=== PATIENT | male | born 1965 | race Caucasian/White ===

== ENCOUNTER 2018-07-07 06:57 | Inpatient (IN) | payer MEDICARE, OTHER ==
[2018-07-07] MEDS ORDERED: PROPOFOL 200 MG/20 ML VIAL IV ONE (08:48)
[2018-07-07] MEDS ORDERED: DEXAMETHASONE SODIUM PHOSPHATE 10 MG/ML VIAL ONE (08:48)
[2018-07-07] MEDS ORDERED: ePHEDrine SULFATE 50 MG/1 ML IVP ONE (08:48)
[2018-07-07] MEDS ORDERED: NORMAL SALINE 1,000 ML IV.SOLN IV ONE (08:48)
[2018-07-07] MEDS ORDERED: LACTATED RINGERS 1,000 ML IV.SOLN IV ONE ×2 (08:48)
[2018-07-07] MEDS ORDERED: SEVOFLURANE 250 ML LIQUID IH ONE (08:48)
[2018-07-07] MEDS ORDERED: HYDROmorphone HCL/PF 1 MG/ML VIAL ONE ×2 (08:48→17:07)
[2018-07-07] MEDS ORDERED: GELATIN SPONGE,ABSORB/PORCINE (SIZE 100) 1 EACH SPONGE TP ONE (08:48)
[2018-07-07] MEDS ORDERED: THROMBIN (BOVINE) 5,000 UNIT VIAL TP ONE (08:48)
[2018-07-07] MEDS ORDERED: ROCURONIUM BROMIDE 10 MG/ML 5ML VIAL ONE (08:48)
[2018-07-07] MEDS ORDERED: ceFAZolin SODIUM 1 GM VIAL ONE (08:48)
[2018-07-07] MEDS ORDERED: PHENYLEPHRINE HCL 10 MG/1 ML ONE (08:48)
[2018-07-07] MEDS ORDERED: LIDOCAINE HCL 2% PF 100MG/5ML VIAL IJ ONE (08:48)
[2018-07-07] MEDS ORDERED: MIDAZOLAM HCL 2 MG/2 ML VIAL ONE (08:48)
[2018-07-07] MEDS ORDERED: HYDROmorphone HCL/PF 2 MG/ML VIAL ONE (08:48)
[2018-07-07] MEDS ORDERED: fentaNYL CITRATE/PF 100 MCG/2 ML INJ. ONE ×2 (08:48→17:06)
[2018-07-07] MEDS ORDERED: BACITRACIN 50,000 UNIT VIAL IR ONE (08:48)
[2018-07-07] MEDS ORDERED: LEVALBUTEROL NEB 1.25 MG/3 ML VIAL.NEB NEB ONE (08:48)
[2018-07-07] MEDS ORDERED: THROMBIN (BOVINE) 20,000 UNIT VIAL TP ONE (08:48)
[2018-07-07] MEDS ORDERED: SUGAMMADEX SODIUM 200 MG/2 ML VIAL IV ONE (08:48)
[2018-07-07 18:24] VITALS: BMI 28.7
--- NOTE | 2018-07-07 18:42 | History and Physical Report ---
History of Present Illnes - History of Present Illness Reason for Visit: back pain; s/p L5-[id number] removed, pedicle crew & interbody cage with tr History of Present Illness: 52yo male patient who has some previous surgery to the lower back in 2017 for chronic back pain. Patient is not sure what exactly was done. post surgery he did well. In March of this year started to have some increase problems with back pain again. Failed PT, steroid shots. No numbness or tingling to the lower extremities. Patient has failed conservative measures and it was felt that he would benefit from removal of previous hardware with placement of cage. Patient underwent L5-S1 hardware removed - (pedicle screws) & interbody cage was placed with transforaminal lumbar interbody fusion at L5-S1. Patient was admitted for further care. - Past Medical History Cardiac: CAD (nt), [place] (1997), Hyperlipidemia Pulmonary: Asthma (stab;e, uses occasion HF treatment along with chrinic meidcations), COPD Hepatobiliary: Hep A/B/C (Hep C has ot been treated) Psych: Anxiety, Other (history of meth abuse) Musculoskeletal: Osteoarthritis (generalized) - Past Surgical History Past Surgical History: Total Hip Replacement (left), Total Knee Replacement (bialteral), Other (Rotator cuff repair- Bilterl, left wrist surgery, L5 S1 fusion, ) - Past Family History Mother Family History: Cancer (lung, throat), CAD (CHF), (68yo) Father Family History: CAD (CHF), (69yo) Sister 1 Family History: Cancer (breast) - Past Social History Smoke: <1 pack per day (3/4 ppd) Alcohol: None Drugs: None Lives: Other (girl friend) Domestic Violence: Negative - Health Maintenance Health Maintenance: Influenza Vaccine, Pneumococcal Vaccine Influenza Vaccine: Current for this Influenza Season Pneumonia Vaccine: Yes Resuscitation Status: Resusciation Status Resuscitation Status Full Code Review of Systems - Review of Systems Constitutional: negative: Fever, Chills, Sweats, Weakness Eyes: negative: pain, vision change ENT: negative: Ear Pain, Ear Discharge, Nose Pain, Nose Discharge, Nose Congestion, Mouth Pain, Mouth Swelling, Throat Pain, Throat Swelling Respiratory: negative: Cough, Dry, Shortness of Breath, Hemoptysis, SOB with Excertion, Pleuritic Pain, Sputum, Wheezing Cardiovascular: negative: Chest Pain, Palpitations, Orthopnea, Paroxysmal Noc. Dyspnea, Light Headedness Gastrointestinal: negative: Nausea, Vomiting, Abdominal Pain, Diarrhea, Constipation, Hematochezia Genitourinary: negative: Dysuria, Frequency, Incontinence, Hematuria Musculoskeletal: Back Pain. negative: Neck Pain, Shoulder Pain, Arm Pain Skin: negative: Rash Neurological: negative: Weakness, Numbness, Incoordination, Change in Speech, Confusion, Seizures - Medications/Allergies Allergies/Adverse Reactions: Allergies Allergy/AdvReac Type Severity Reaction Status Date / Time No Known Allergies Allergy Verified 07/07/18 18:25 Home Medications: Home Medications Budesonide/Formoterol Fumarate [Symbicort 80-4.5 Mcg Inhaler] 2 inh INH BID 07/07/18 Clonazepam 1 tab PO TID PRN 07/07/18 Montelukast Sodium [Singulair] 10 mg PO HS 07/07/18 Oxycodone HCl/Acetaminophen [Oxycodone-Acetaminophen 10-325] 1 tab PO Q4 PRN 07/07/18 Tizanidine HCl 4 mg PO TID PRN 07/07/18 Valacyclovir HCl [Valacyclovir] 1 tab PO DAILY 07/07/18 Exam - Exam Vital Signs: Vital Signs (72 hours) 07/07/18 18:00 Temperature 96.8 F L Pulse Rate [ 79 Right] Respiratory 20 Rate Blood Pressure 125/72 [Right Arm] O2 Sat by Pulse 96 Oximetry General: Alert, Oriented to Person, Oriented to Place, Oriented to Time, Cooperative HEENT: Atraumatic, PERRLA, EOMI, Mouth Mucous membr. moist/Crooks, Nose Mucous membr. moist/Crooks Neck: Normal Range of Motion Carotids: WNL Lungs: Clear to auscultation, Normal air movement, Speaks full Sentences Cardiovascular: Regular rate, Normal S1, Normal S2, No murmurs Abdomen: Normal bowel sounds, Soft, No tenderness, No hepatospenomegaly, No masses Integumentary: Normal, [place], Warm, Dry Extremities: No clubbing, No cyanosis, No edema, Normal pulses, No tenderness/swelling Neurological: Normal gait, Normal speech, Strength Equal Bilat, Normal tone, Sensation intact, Cranial nerves 3-12 NL, Reflexes 2+ Psych/Mental Status: Mental status NL, Mood NL, Appropriate Affect, Intact Judgment - Laboratory Results Laboratory Results: Laboratory Results 07/07/18 08:46 Potassium 4.3 Assessment/Plan - Assessment/Plan (1) Follow-up examination after orthopedic surgery Status: Acute Current Visit: Yes Assessment: Patient has been placed on routine protochol for post-op surgery. Patient encourage with early ambulation. instructive to use incentinve spirometry several times an hour while awake. (2) CAD (coronary artery disease) Status: Chronic Current Visit: Yes Qualifiers: Coronary Disease-Associated Artery/Lesion type: [place] artery [place] vs. transplanted heart: kaw heart Assessment: continue with home meds (3) COPD (chronic obstructive pulmonary disease) Status: Chronic Current Visit: Yes Assessment: Continue with home meds (4) Asthma in adult Status: Chronic Current Visit: Yes Qualifiers: Asthma severity: mild Asthma persistence: intermittent Asthma complication type: uncomplicated Qualified Code(s): J45.20 - Mild intermittent asthma, uncomplicated Assessment: continue with home meds (5) Hepatitis C infection Status: Chronic Current Visit: Yes Assessment: Has not been treated at this time (6) Generalized OA Status: Chronic Current Visit: Yes (7) Tobacco dependence Status: Acute Current Visit: Yes Assessment: nicotine patch, encourage patient to stop smoking VTE Assessment - RISK FACTOR SCORE VTE RISK FACTOR SCORES: ANTICIPATED BED CONFINEMENT OR IMMOBILIZATION > 24 HOURS, MINOR SURGERY/ ANESTHESIA TIME < 1 HOUR - RISK VTE MODERATE RISK: SCORE OF 2 (RISK PROXIMAL DVT 2-4%) PROPHYAXIS NEEDED
[2018-07-07] MEDS ORDERED: fentaNYL CITRATE/PF 100 MCG/2 ML INJ. IVP PRN (19:02)
[2018-07-07] MEDS ORDERED: IPRATROPIUM/ALBUTEROL SULFATE 3 ML AMPUL.NEB NEB PRN (19:02)
[2018-07-07] MEDS ORDERED: clonazePAM 0.5 MG TABLET PO PRN (19:10)
[2018-07-07] MEDS: KETOROLAC TROMETHAMINE 15 MG/ML VIAL IV PRN (19:14)
[2018-07-07] MEDS: NICOTINE 21mg 1 EACH PATCH.TD24 TD SCH (20:57)
[2018-07-07] MEDS: FLUTICASONE/SALMETEROL 250-50 INHALER IH SCH (20:57)
[2018-07-07] MEDS: MONTELUKAST SODIUM 10 MG TABLET PO SCH (20:58)
[2018-07-07] MEDS: oxyCODONE/ACETAMINOPHEN 5/325 TABLET PO PRN (21:00)
[2018-07-08] MEDS: KETOROLAC TROMETHAMINE 15 MG/ML VIAL IV PRN (01:08)
[2018-07-08 06:41] LABS: BASOPHILS % 0.4 % (0.0-1.5); EOSINOPHILS % 0.7 % (0.0-6.8); MEAN CORPUSCULAR HEMOGLOBIN 30.5 pg (28.0-34.0); MONOCYTES % 8.7 % (0.0-11.0); NEUTROPHILS # 9.9 # k/uL (1.4-7.7)
[2018-07-08 06:43] LABS: eGFR (Non-African) > 60
[2018-07-08] MEDS: oxyCODONE/ACETAMINOPHEN 5/325 TABLET PO PRN ×4 (07:14→20:54)
[2018-07-08] MEDS: NICOTINE 21mg 1 EACH PATCH.TD24 TD SCH (07:34)
[2018-07-08] MEDS: FLUTICASONE/SALMETEROL 250-50 INHALER IH SCH (08:44)
[2018-07-08] MEDS: PATIENT OWN MED 1 EACH EACH PO SCH (08:45)
[2018-07-08] MEDS: PATIENT OWN MED 1 EACH EACH INH SCH (08:45)
[2018-07-08] MEDS: MONTELUKAST SODIUM 10 MG TABLET PO SCH (20:51)
[2018-07-09] MEDS: oxyCODONE/ACETAMINOPHEN 5/325 TABLET PO PRN ×2 (01:43→08:06)
[2018-07-09] MEDS: NICOTINE 21mg 1 EACH PATCH.TD24 TD SCH (08:07)
[2018-07-09] MEDS: PATIENT OWN MED 1 EACH EACH INH SCH (08:07)
[2018-07-09] MEDS: PATIENT OWN MED 1 EACH EACH PO SCH (08:07)
--- NOTE | 2018-07-09 08:39 | Inpatient Progress Note ---
Subjective - Required Recertification Statement I anticipate X number of days because-include discharge plan: 1 day - Review of Systems Events since last encounter: Patient is feeling better today. Has been up ambulating with some difficulties. Has not had a BM yet, is passing flatus. Appetite has been fair. Pain has been fairly well controlled. Other chronic medical problems are stable at this time. Cardiovascular: Chest Pain Gastrointestinal: Denies: Nausea, Vomiting, Abdominal Pain Objective - Exam Vitals and I&O: Vital Signs Temp 98.8 F 07/09/18 08:21 Pulse 94 H 07/09/18 08:21 Resp 22 07/09/18 08:21 BP 131/78 07/09/18 08:21 Pulse Ox 92 07/09/18 08:21 Intake & Output 07/08/18 07/08/18 07/09/18 11:59 23:59 11:59 Intake Total 9995 356 5935 Output Total 775 1000 1400 Balance 680 -520 -200 Weight 90.718 kg Intake: Oral 1243 271 2551 Output: Urine 775 1000 1400 Other: Voiding Method Toilet Toilet # Voids 1 1 # Bowel Movements 0 0 0 General: Alert, Oriented to Person, Oriented to Place, Oriented to Time, Cooperative, No acute distress Neck: Supple, No JVD Lungs: Clear to auscultation, Normal air movement, Speaks full Sentences. No: Wheezes, Rales, Rhonchi Cardiovascular: Regular rate, Normal S1, Normal S2 Abdomen: Normal bowel sounds, Soft, Other (mild tenderness) Extremities: No clubbing, No cyanosis Skin: Normal, [place], Warm, Dry Neurological: Normal gait, Normal speech, Normal tone, Sensation intact, Reflexes 2+ - Results Results: Laboratory Results WBC 13.20 K/ul (4.00-12.00) H 07/08/18 05:50 RBC 4.13 M/ul (3.90-5.20) 07/08/18 05:50 Hgb 12.6 g/dL (12.0-18.0) 07/08/18 05:50 Hct 37.4 % (37.0-53.0) 07/08/18 05:50 MCV 91.0 fl (80.0-100.0) 07/08/18 05:50 MCH 30.5 pg (28.0-34.0) 07/08/18 05:50 MCHC 33.7 g/dL (30.0-36.0) 07/08/18 05:50 RDW 14.3 % (11.3-14.3) 07/08/18 05:50 Plt Count 295 K/mm3 (130-400) 07/08/18 05:50 Neut % (Auto) 74.9 % (39.0-79.0) 07/08/18 05:50 Lymph % (Auto) 15.3 % (16.0-50.0) L 07/08/18 05:50 [place] % (Auto) 8.7 % (0.0-11.0) 07/08/18 05:50 Eos % (Auto) 0.7 % (0.0-6.8) 07/08/18 05:50 Baso % (Auto) 0.4 % (0.0-1.5) 07/08/18 05:50 Neut # (Auto) 9.9 # k/uL (1.4-7.7) H 07/08/18 05:50 Lymph # (Auto) 2.0 # k/uL (0.6-4.0) 07/08/18 05:50 [place] # (Auto) 1.2 # k/uL (0.0-0.9) H 07/08/18 05:50 Eos # (Auto) 0.1 # k/uL (0.0-0.6) 07/08/18 05:50 Baso # (Auto) 0.1 # k/uL (0.0-0.5) 07/08/18 05:50 Sodium 134 mmol/L (137-145) L 07/08/18 05:50 Potassium 4.4 mmol/L (3.5-5.1) 07/08/18 05:50 Chloride 104 mmol/L (98-107) 07/08/18 05:50 Carbon Dioxide 27 mmol/L (22-30) 07/08/18 05:50 BUN 13 mg/dL (9-20) 07/08/18 05:50 Creatinine 0.65 mg/dL (0.66-1.25) L 07/08/18 05:50 Estimated Creat Clear 168 07/08/18 05:50 Est GFR ( Amer) > 60 (60-) 07/08/18 05:50 Est GFR (Non-Af Amer) > 60 (60-) 07/08/18 05:50 Glucose 150 mg/dL (74-106) H 07/08/18 05:50 Calcium 8.4 mg/dL (8.4-10.2) 07/08/18 05:50 Assessment/Plan - Assessment/Plan (1) Follow-up examination after orthopedic surgery Status: Acute (2) CAD (coronary artery disease) Status: Chronic Qualifiers: Coronary Disease-Associated Artery/Lesion type: [place] artery [place] vs. transplanted heart: [place] heart (3) COPD (chronic obstructive pulmonary disease) Status: Chronic Assessment: stable (4) Asthma in adult Status: Chronic Qualifiers: Asthma severity: mild Asthma persistence: intermittent Asthma complication type: uncomplicated Qualified Code(s): J45.20 - Mild intermittent asthma, uncomplicated Assessment: stable (5) Hepatitis C infection Status: Chronic Assessment: stable (6) Generalized OA Status: Chronic Assessment: stable (7) Tobacco dependence Status: Acute Assessment: is thinking about quitting
--- NOTE | 2018-07-09 08:40 | Discharge Summary ---
Discharge Summary - Discharge [facility] Admission Date: 07/07/18 (Acute) Discharge Date: 07/09/18 (Home) History of Present Illness: 52yo male patient who has some previous surgery to the lower back in 2017 for chronic back pain. Patient is not sure what exactly was done. post surgery he did well. In March of this year started to have some increase problems with back pain again. Failed PT, steroid shots. No numbness or tingling to the lower extremities. Patient has failed conservative measures and it was felt that he would benefit from removal of previous hardware with placement of cage. Patient underwent L5-S1 hardware removed - (pedicle screws) & interbody cage was placed with transforaminal lumbar interbody fusion at L5-S1. Patient was admitted for further care. Home Medications: Ambulatory Orders Medication Instructions Recorded Budesonide/Formoterol Fumarate 2 inh INH BID 07/07/18 [Symbicort 80-4.5 Mcg Inhaler] Clonazepam 1 tab PO TID PRN 07/07/18 Montelukast Sodium [Singulair] 10 mg PO HS 07/07/18 Tizanidine HCl 4 mg PO TID PRN 07/07/18 Valacyclovir HCl [Valacyclovir] 1 tab PO DAILY 07/07/18 NICOTINE 21mg [HABITROL 21mg] 1 each TD DAILY patch.td24 07/09/18 Oxycodone HCl/Acetaminophen 1 each PO Q4 PRN #54 tablet 07/09/18 [Endocet 7.5-325 mg Tablet] Consultations this Visit: None Procedures this Visit: None Allergies/Adverse Reactions: Allergies Allergy/AdvReac Type Severity Reaction Status Date / Time No Known Allergies Allergy Verified 07/07/18 18:25 Discharge Summary: Patient did well postoperatively. Patient was able to participate in early ambulation. Patient pain was managed well with routine pain medications postoperatively. Patient did use incentive spirometry on a frequent basis. Patient did not have any numbness or weakness to her lower extremities. Patient did not have any bowel or bladder incontinent issues. Patient will incite remain stable. At the time to discharge patient was passing gas however had not had a bowel movement. Patient payment being controlled with oral medications. Patient was able to eat and drink without any problems. It was felt that the patient could be followed up on an outpatient basis and was discharged home in stable condition. - Final Diagnosis (1) Follow-up examination after orthopedic surgery Problems: stable improved (2) CAD (coronary artery disease) Problems: stable on home meds (3) COPD (chronic obstructive pulmonary disease) Problems: stable on home meds (4) Asthma in adult Problems: stable on home meds (5) Hepatitis C infection Problems: Encourage to get this treated (6) Generalized OA Problems: stable on home meds (7) Tobacco dependence Problems: encouraged to stop smoking
[2018-07-09 12:10] VITALS: BP 126/68
--- NOTE | 2018-07-18 10:35 | Operative Note ---
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 POSTOPERATIVE DIAGNOSIS: Failed fusion, L5-S1, with loose hardware and grade 2 spondylolisthesis, L5-S1. PROCEDURES PERFORMED: 1. Removal of hardware, pedicle screw and ramesh complex, L5-S1. 2. Placement of pedicle screws and rods spanning L4 to sacrum. 3. Transforaminal lumbar interbody fusion, lumbar spine, L5-S1. 4. Reoperative laminectomy with bilateral foraminotomies and facetectomy for decompression of central and bilateral foraminal stenosis, L5-S1. 5. Placement of prosthetic interbody fusion cage, L5-S1. 6. Posterolateral transverse process fusion of the lumbar spine at L4, L5 and S1 using osteoconductive bone graft material. 7. Interbody fusion, L5-S1, using a combination of autologous bone graft and osteoconductive bone graft material. SURGEON: Jakub Beltran Jr., M.D. CONTROL PANEL TESTER: CLYDE Syed BC ANESTHESIA: General. COMPLICATIONS: None. CONDITION FOLLOWING THE PROCEDURE: Good. OPERATIVE FINDINGS: This patient is having severe, unremitting pain in the lumbar spine and has become wheelchair-bound due to radiculopathy. He was found on evaluation to have a nonunion, more likely than not, at L5-S1 with persistence of a grade 2 spondylolisthesis, central stenosis, bilateral foraminal stenosis, and evidence of hardware loosening, pedicle screw and ramesh construct at L5-S1. At the time of surgery, the hardware was found to be loose. Nonunion was confirmed. There was a copious amount of disc material within the L5-S1 disc space. Screw removal from L5-S1 due to the windshield-wipering was found to be incompetent to accept screws again and be stable, thus construct needed to span L4 to the sacrum. This required plans later on to perform an ALIF at L4-5 with standalone interbody cages because the pedicle screws could not reliably accept hardware. DESCRIPTION OF PROCEDURE: The patient was taken to the operating room and anesthesia induced. In the prone position, the back was thoroughly scrubbed, sterilely prepped and draped. Skin was incised and the paraspinous muscles were stripped to the tip of the transverse process at L5 and over the sacrum. The caps were removed from the pedicle screw and ramesh construct bilaterally and the rods were foreshortened. However, cap and shortened ramesh fixation at the sacrum did not allow the screws to be removed. Thus, a high-speed drill had to be used to remove the tulip and then directly grasping the pedicle screws, it could eventually be removed from the sacrum. These were then replaced with 7.0 mm pedicle screws of the appropriate length. L5 was determined to be incompetent for accepting pedicle screws, thus at L4 pedicle screws were established and a construct created between L4 and the sacrum which was allowing distraction and significant reduction in the spondylolisthesis at L5-S1. The intervertebral disc space at L5-S1 was then radically evacuated of all disc material. Bilateral foraminotomies and facetectomies were then carried out at L5-S1. All bone graft was removed and morselized for use as autologous bone graft material. The appropriate size interbody cage was then packed with autologous bone graft and autologous bone graft was packed into the left side of the vertebral body first, followed by the cage, and then packed into the right side of the body. Posterior to the cage, the interbody space which had been decorticated was also packed with a combination of autologous bone graft and osteoconductive bone graft material. It was felt at this point in time that sufficient surgery had been performed and, considering the time with which it took to remove the hardware with difficulty, it was decided to perform an ALIF at a later date at L4-5 and terminate the surgery at this point, having accomplished posterolateral fusion, reduction of the spondylolisthesis, construct spanning L4 to the sacrum, and interbody cage placement with autologous bone graft and osteoconductive bone graft constituting a TLIF at L5-S1. Thus, the exiting nerve roots were covered with 4-0 Vicryl. The patient was then awakened and moved to the recovery room where a grossly normal motor and sensory examination was confirmed to be present. JAKUB BELTRAN JR., M.D. GRICEL/rolanda (Please copy [facility] provider when applicable) Job #[id number] MARY
== END 2018-07-09 11:55 | disposition home or self-care (01) | DRG 454 ==
LOC: OPSURG 06:57 → SOUTH 17:45
PROVIDERS: ADMIT Family Medicine; ATTEND Family Medicine
PROC: 0SG30AJ Fusion of Lumbosacral Joint with Interbody Fusion Device, Posterior Approach, Anterior Column, Open Approach (ICD-10-PCS; principal; 2018-07-07)
PROC: 0SG0071 Fusion of Lumbar Vertebral Joint with Autologous Tissue Substitute, Posterior Approach, Posterior Column, Open Approach (ICD-10-PCS; 2018-07-07)
PROC: 00PU0YZ Removal of Other Device from Spinal Canal, Open Approach (ICD-10-PCS; 2018-07-07)
PROC: 0ST40ZZ Resection of Lumbosacral Disc, Open Approach (ICD-10-PCS; 2018-07-07)
PROC: 0SG3071 Fusion of Lumbosacral Joint with Autologous Tissue Substitute, Posterior Approach, Posterior Column, Open Approach (ICD-10-PCS; 2018-07-07)
DX: M96.0 Pseudarthrosis after fusion or arthrodesis (principal); T85.890A Other specified complication of nervous system prosthetic devices, implants and grafts, initial encounter; M48.07 Spinal stenosis, lumbosacral region; M43.17 Spondylolisthesis, lumbosacral region; M54.17 Radiculopathy, lumbosacral region; F41.0 Panic disorder [episodic paroxysmal anxiety]; J45.20 Mild intermittent asthma, uncomplicated; J44.9 Chronic obstructive pulmonary disease, unspecified; Y83.8 Other surgical procedures as the cause of abnormal reaction of the patient, or of later complication, without mention of misadventure at the time of the procedure; F17.200 Nicotine dependence, unspecified, uncomplicated; B18.2 Chronic viral hepatitis C; E78.5 Hyperlipidemia, unspecified; M15.9 Polyosteoarthritis, unspecified; G43.909 Migraine, unspecified, not intractable, without status migrainosus; I25.10 Atherosclerotic heart disease of native coronary artery without angina pectoris; Z96.642 Presence of left artificial hip joint; Z96.653 Presence of artificial knee joint, bilateral; I25.2 Old myocardial infarction; Z80.1 Family history of malignant neoplasm of trachea, bronchus and lung; Z99.3 Dependence on wheelchair; Z79.51 Long term (current) use of inhaled steroids; Y75.3 Surgical instruments, materials and neurological devices (including sutures) associated with adverse incidents
CPT/HCPCS: 20680; 20930; 20936; 22630; 22853; 36415; 80048; 84132; 85025; 86885; 86900; 86920; 97116; 97161; 97165; 97535; A9270; J0690; J1170; J2001; J2250; J2370; J2704; J3010; J3490; J7030; J7120; J7614; P9040

== ENCOUNTER 2018-08-18 07:10 | Inpatient (IN) | payer MEDICARE, OTHER ==
[2018-08-18] MEDS ORDERED: LACTATED RINGERS 1,000 ML IV.SOLN IV ONE ×2 (08:48)
[2018-08-18] MEDS ORDERED: DEXAMETHASONE SODIUM PHOSPHATE 10 MG/ML VIAL ONE (08:48)
[2018-08-18] MEDS ORDERED: MIDAZOLAM HCL 2 MG/2 ML VIAL ONE (08:48)
[2018-08-18] MEDS ORDERED: ceFAZolin SODIUM 1 GM VIAL ONE (08:48)
[2018-08-18] MEDS ORDERED: SUGAMMADEX SODIUM 200 MG/2 ML VIAL IV ONE (08:48)
[2018-08-18] MEDS ORDERED: ROCURONIUM BROMIDE 10 MG/ML 5ML VIAL ONE (08:48)
[2018-08-18] MEDS ORDERED: ONDANSETRON HCL/PF 4 MG/ 2ML VIAL ONE (08:48)
[2018-08-18] MEDS ORDERED: LEVALBUTEROL NEB 1.25 MG/3 ML VIAL.NEB NEB ONE (08:48)
[2018-08-18] MEDS ORDERED: SEVOFLURANE 250 ML LIQUID IH ONE (08:48)
[2018-08-18] MEDS ORDERED: NORMAL SALINE 1,000 ML IV.SOLN IV ONE ×3 (08:48→20:39)
[2018-08-18] MEDS ORDERED: PROPOFOL 200 MG/20 ML VIAL IV ONE (08:48)
[2018-08-18] MEDS ORDERED: LIDOCAINE HCL 2% PF 100MG/5ML VIAL IJ ONE (08:48)
[2018-08-18] MEDS ORDERED: HYDROmorphone HCL/PF 2 MG/ML VIAL ONE (08:48)
[2018-08-18] MEDS ORDERED: BACITRACIN 50,000 UNIT VIAL IR ONE (08:48)
[2018-08-18] MEDS ORDERED: THROMBIN (BOVINE) 20,000 UNIT VIAL TP ONE (08:48)
[2018-08-18] MEDS ORDERED: GELATIN SPONGE,ABSORB/PORCINE (SIZE 100) 1 EACH SPONGE TP ONE (08:48)
[2018-08-18] MEDS ORDERED: oxyCODONE HCL 5 MG TABLET ONE ×4 (19:47)
[2018-08-18] MEDS ORDERED: clonazePAM 0.5 MG TABLET PO ONE ×2 (20:35)
[2018-08-18] MEDS ORDERED: ceFAZolin SODIUM 1 GM/50 ML PIGGYBACK IV ONE ×2 (20:39)
[2018-08-18] MEDS ORDERED: fentaNYL CITRATE/PF 100 MCG/2 ML INJ. ONE (22:56)
[2018-08-19] MEDS ORDERED: oxyCODONE HCL 5 MG TABLET ONE ×20 (01:30→23:35)
[2018-08-19] MEDS ORDERED: MULTIVITAMIN 1 EACH TABLET ONE (08:54)
[2018-08-19] MEDS ORDERED: clonazePAM 0.5 MG TABLET PO ONE ×6 (08:55→19:47)
[2018-08-19] MEDS ORDERED: TIZANIDINE HCL 4 MG TABLET PO ONE ×3 (08:55→16:31)
[2018-08-19] MEDS ORDERED: NICOTINE 14mg PATCH.TD24 TD ONE (08:59)
[2018-08-19] MEDS ORDERED: FLUTICASONE/SALMETEROL 250-50 INHALER IH ONE ×2 (10:13)
[2018-08-20] MEDS ORDERED: oxyCODONE HCL 5 MG TABLET ONE ×8 (04:02→08:36)
[2018-08-20] MEDS ORDERED: MULTIVITAMIN 1 EACH TABLET ONE (08:36)
[2018-08-20] MEDS ORDERED: NICOTINE 14mg PATCH.TD24 TD ONE (08:37)
[2018-08-20] MEDS ORDERED: clonazePAM 0.5 MG TABLET PO ONE ×2 (08:37)
[2018-08-20] MEDS ORDERED: TIZANIDINE HCL 4 MG TABLET PO ONE (08:37)
[2018-08-27 08:27] LABS: eGFR (Non-African) > 60
[2018-08-27 08:28] LABS: BASOPHILS % 0.4 % (0.0-1.5); NEUTROPHILS # 8.8 # k/uL (1.4-7.7)
--- NOTE | 2018-09-05 14:08 | Operative Note ---
PREOPERATIVE DIAGNOSIS: 1. Status post transforaminal lumbar interbody fusion of the lumbar spine at L5- S1 with pedicle screw and ramesh construct spanning L4 to the sacrum. 2. Persistent instability, herniated nucleus pulposus and degenerative disc disease at L4-5. POSTOPERATIVE DIAGNOSIS: 1. Status post transforaminal lumbar interbody fusion of the lumbar spine at L5- S1 with pedicle screw and ramesh construct spanning L4 to the sacrum. 2. Persistent instability, herniated nucleus pulposus and degenerative disc disease at L4-5. PROCEDURES PERFORMED: 1. Left-sided retroperitoneal exploration for exposure of the anterior lumbar spine at L4-5. 2. Isolation, ligation and division of the left lumbar vein for exposure of the anterior lumbar spine at L4-5. 3. Venolysis of the vena cava, left and right common iliac veins for exposure of the anterior lumbar spine at L4-5. 4. Arteriolysis of the left and right common iliac arteries and aorta for exposure of the anterior lumbar spine at L4-5. 5. Radical anterior discectomy of the lumbar spine at L4-5. 6. Placement of standalone cage, prosthetic interbody fusion device at L4-5, Aesculap Arcadius cage with four screws. 7. Anterior lumbar interbody fusion of the lumbar spine at L4-5 using osteoconductive bone graft material. 8. Intraoperative fluoroscopy and interpretation for needle placement. SURGEON: Jakub Beltran Jr., M.D. SHAREPOINT SPECIALIST: CLYDE Syed BC ANESTHESIA: General. COMPLICATIONS: None. CONDITION FOLLOWING THE PROCEDURE: Good. OPERATIVE FINDINGS: This patient has lumbar spine instability and deformity which was corrected posteriorly for the most part with pedicle screw and ramesh construct spanning L4 to the sacrum. There was previous revision surgery performed and such degree of deformity at the L4-5 and L5-S1 level that the L5 vertebral body was deemed to be inadequate for placement of pedicle screws. Thus, it was deemed with successful placement of an interbody cage from the posterior approach at L5-S1 that L4-5 would be more judiciously approached anteriorly and the addition of additional stability would be necessary by using a standalone cage, and this was accomplished successfully. DESCRIPTION OF PROCEDURE: The patient was taken to the operating room and anesthesia induced. In the supine position, the abdomen was thoroughly scrubbed and sterilely prepped and draped. Radiographic percy was made representing the extended center line of the L4-5 disc space. Centered on this location, a 3.5 cm incision was made vertically. Subcutaneous tissue was dissected with electrocautery until the rectus fascia was identified. Just to the left of midline, the rectus fascia was divided superiorly and inferiorly. The rectus muscle was then retracted on the left side to the side and anteriorly, revealing the posterior rectus sheath. At the posterolateral corner of the rectus sheath, the retroperitoneal space was entered and the peritoneum began to be swept superiorly and to the right side. The psoas muscle was encountered and protected. X-rays were taken to confirm localization at the L4-5 level. Retraction of the vena cava, left and right common iliac arteries and veins, and the aorta then began to be retracted to the right side to reveal the disc space at L4-5. It was noted that the L5 left lumbar vein was a restricting structure, thus it was ligated with 2-0 silk and double-clipped before dividing with titanium vascular clips. Once it was divided, there was sufficient mobilization of the left common iliac vein to allow complete retraction and exposure of the intervertebral disc space to be allowed by progressively and gently retracting the vena cava with left and right common iliac veins along with the aorta and left and right common iliac arteries. A midline marker was made and midline was determined radiographically and marked with electrocautery on the vertebral body. Electrocautery was then used to perform an annulectomy. Pituitary rongeurs were then used to effect a radical discectomy after quintero elevators were used to loosen the disc material and as much of the cartilaginous endplates as possible. Distraction was then made upon the disc space and the endplates were completely curettaged until no cartilage remained. Posteriorly, a combination of curettes and Kerr[place] rongeurs were used to remove the overhanging osteophytes and to remove the recurrent herniated nucleus pulposus at L4-5 if present. With this accomplished, a sizing device was placed and it was determined how large footplate implant would be required, along with determining the appropriate implant height required for desired foraminal distraction to occur. Assembled on the insertion device was the chosen cage, which was then driven into position as determined radiographically. The insertion device was removed and copious irrigation followed. The holes in the cage were then used to receive the awl preparing holes in the vertebral body to receive the screws of the appropriate length which were then carefully placed. Remaining bone graft material was them place anteriorly and laterally to the cage if room was available prior to placing Gelfoam over the disc space. With the Gelfoam in place, the retractors were gradually removed and the posterior rectus sheath was swept back into its normal position. The anterior rectus sheath was then sutured shut with 0 PDS, 3-0 Vicryl approximated the subcutaneous tissue, and Dermabond approximated the epithelium. The patient then received a dressing, was awakened and taken to the recovery room in good condition. JAKUB BELTRAN JR., M.D. GRICEL/rolanda (Please copy [facility] provider when applicable) Job #[id number] MARY
== END 2018-08-20 12:00 | disposition home or self-care (01) | DRG 460 ==
LOC: OPSURG 07:10 → SOUTH 16:45
PROVIDERS: ADMIT Family Medicine; ATTEND Family Medicine
PROC: 0SG00A0 Fusion of Lumbar Vertebral Joint with Interbody Fusion Device, Anterior Approach, Anterior Column, Open Approach (ICD-10-PCS; principal; 2018-08-18)
PROC: 0ST20ZZ Resection of Lumbar Vertebral Disc, Open Approach (ICD-10-PCS; 2018-08-18)
DX: M96.0 Pseudarthrosis after fusion or arthrodesis (principal); M43.17 Spondylolisthesis, lumbosacral region; F41.9 Anxiety disorder, unspecified; J44.9 Chronic obstructive pulmonary disease, unspecified; F32.9 Major depressive disorder, single episode, unspecified; M51.36 Other intervertebral disc degeneration, lumbar region; G43.909 Migraine, unspecified, not intractable, without status migrainosus; G89.29 Other chronic pain; I25.2 Old myocardial infarction; M15.9 Polyosteoarthritis, unspecified; I25.10 Atherosclerotic heart disease of native coronary artery without angina pectoris; M51.26 Other intervertebral disc displacement, lumbar region; F17.210 Nicotine dependence, cigarettes, uncomplicated; Z91.81 History of falling; Z86.74 Personal history of sudden cardiac arrest; Z86.14 Personal history of Methicillin resistant Staphylococcus aureus infection; Z96.651 Presence of right artificial knee joint; Z91.048 Other nonmedicinal substance allergy status; Z79.899 Other long term (current) drug therapy; Z79.51 Long term (current) use of inhaled steroids; Z79.1 Long term (current) use of non-steroidal anti-inflammatories (NSAID); Z80.1 Family history of malignant neoplasm of trachea, bronchus and lung; Z86.73 Personal history of transient ischemic attack (TIA), and cerebral infarction without residual deficits; Z86.19 Personal history of other infectious and parasitic diseases; Y83.4 Other reconstructive surgery as the cause of abnormal reaction of the patient, or of later complication, without mention of misadventure at the time of the procedure; Y79.1 Therapeutic (nonsurgical) and rehabilitative orthopedic devices associated with adverse incidents
CPT/HCPCS: 80048; 85025; 97116; 97161; 97165; 97530; J0690; J1170; J2001; J2250; J2405; J2704; J3010; J3490; J7030; J7120; J7614; 99221